=== PATIENT | female | born 1960 | race Caucasian/White ===

== ENCOUNTER 2017-10-14 22:33 | Inpatient (IN) | payer MEDICARE ==
[~2017-10-14] VITALS: Ht 167.6 cm; Wt 74.9 kg
[2017-10-14 22:10] VITALS: O2SAT 94
[2017-10-14] MEDS ORDERED: MORPHINE SULFATE 4 MG/ML INJ ONE (22:36)
[2017-10-14] MEDS ORDERED: ONDANSETRON HCL 4 MG/2 ML VIAL ONE (22:37)
[2017-10-14] MEDS ORDERED: DIPHTH/TETANUS/ACEL PERTUSSIS (BOOSTER) 0.5 ML VIAL/PFS IM ONE (22:37)
[2017-10-14] MEDS ORDERED: PROPOFOL 200 MG/20 ML AMP ONE (22:41)
[2017-10-14 22:59] LABS: AUTOMATED NEUTROPHIL # 2.6 TH/MM3 (1.8-7.7); BASOPHIL # 0.1 TH/MM3 (0-0.2); BASOPHIL % 1.5 % (0.0-2.0); EOSINOPHIL # 0.3 TH/MM3 (0-0.4); EOSINOPHIL % 4.3 % (0.0-4.0); HEMOGLOBIN 11.8 GM/DL (11.6-15.3); LYMPH % 48.2 % (9.0-44.0); LYMPHOCYTE # 3.8 TH/MM3 (1.0-4.8); MEAN CELL VOLUME 108.2 FL (80.0-100.0); MEAN CORPUSCULAR HEMOGLOBIN 36.6 PG (27.0-34.0); MEAN CORPUSCULAR HGB CONC 33.8 % (32.0-36.0); MEAN PLATELET VOLUME 10.6 FL (7.0-11.0); MONO % 13.8 % (0.0-8.0); MONOCYTE # 1.1 TH/MM3 (0-0.9); NEUT % 32.2 % (16.0-70.0); PLATELET COUNT 245 TH/MM3 (150-450); RED BLOOD COUNT 3.23 MIL/MM3 (4.00-5.30); RED CELL DISTRIBUTION WIDTH 13.1 % (11.6-17.2); WHITE BLOOD COUNT 7.9 TH/MM3 (4.0-11.0)
[2017-10-14 23:00] VITALS: BP 92/55; PULSE 95; RESP 16; O2SAT 100
[2017-10-14] MEDS ORDERED: ceFAZolin 2 GM PREMIX 50 ML IV ONE (23:00)
--- NOTE | 2017-10-14 23:02 | PD ---
HPI Chief Complaint: Trauma Alert Time Seen by Provider: 22:39 Travel History International Travel<30 days: No Contact w/Intl Traveler<30days: No Traveled to known affect area: No History of Present Illness HPI 57-year-old female brought in by ambulance as a level 2 trauma alert. Upon arrival to the emergency department the entire trauma team was at the bedside and ATLS protocol was followed. Patient arrives awake and alert and on a long board. She reports that she tripped and fell down 2 steps at her home and twisted her left leg. She experienced immediate pain to the left leg and was unable to ambulate. It took her about 30-45 minutes to crawl back into her home to call 911. She denies head injury or LOC. She was given 4 mg of IV morphine by EMS prior to arrival. Pain is still significant in her left leg, constant, worse with movements. She denies any other injuries. No head neck or back pain. No upper extremity or right lower extremity pain. No chest pain or dyspnea. No abdominal pain. No paresthesias in the left foot. Last oral intake was around noon today. [facility] Social History Alcohol Use: Yes Tobacco Use: No Allergies-Medications (Allergen,Severity, Reaction): Coded Allergies: No Known Allergies (Unverified , 10/14/17) Review of Systems Except as stated in HPI: all other systems reviewed are Neg Physical Exam Narrative GENERAL: Well-developed, well-nourished, awake, alert, GCS 15, no apparent distress. SKIN: Focused skin assessment warm/dry. Small approximately 1 cm was onto laceration superior to the left lateral malleolus with mild venous oozing, no visible contaminants. HEAD: Atraumatic. Normocephalic. EYES: Pupils equal and round. No scleral icterus. No injection or drainage. ENT: Mucous membranes pink and moist. NECK: Trachea midline. No JVD. CARDIOVASCULAR: Regular rate and rhythm. Normal capillary refill in left foot and toes, however dorsalis pedis pulse is not palpable, however is dopplerable. RESPIRATORY: No accessory muscle use. Clear to auscultation. Breath sounds equal bilaterally. GASTROINTESTINAL: Abdomen soft, non-tender, nondistended. Hepatic and splenic margins not palpable. MUSCULOSKELETAL: Obvious deformity to left distal leg with moderate sized hematoma over the distal tibia, diffusely tender, all compartments in the leg are supple. The rest of her joints and extremities are without deformity, without tenderness, with normal range of motion. Pelvis is stable. NEUROLOGICAL: Awake and alert. No obvious cranial nerve deficits. Motor grossly within normal limits. Normal speech. Normal sensation in left foot and toes as well as the rest of her extremities. PSYCHIATRIC: Appropriate mood and affect; insight and judgment normal. Data Data Last Documented VS Vital Signs Date Time Temp Pulse Resp B/P (MAP) Pulse Ox O2 Delivery O2 Flow Rate FiO2 10/14/17 23:45 97 Nasal Cannula 3.00 10/14/17 23:44 97 16 Orders Orders Morphine Inj (Morphine Inj) (10/14/17 22:36) Ondansetron Inj (Zofran Inj) (10/14/17 22:37) Lkqw-Kgw-Wdwfsz (Booster) Inj (Boostrix (10/14/17 22:37) I-Stat Profile (10/14/17 22:39) Complete Blood Count With Diff (10/14/17 22:39) Prothrombin Time / Inr (Pt) (10/14/17 22:39) Act Partial Throm Time (Ptt) (10/14/17 22:39) Type And Screen (10/14/17 22:39) Alcohol (Ethanol) (10/14/17 22:39) Urinalysis - C+S If Indicated (10/14/17 22:39) Chest, Single Ap (10/14/17 22:39) Iv Access Insert/Monitor (10/14/17 22:39) Ecg Monitoring (10/14/17 22:39) Oximetry (10/14/17 22:39) Oxygen Administration (10/14/17 22:39) Ed Poc Ultrasound (10/14/17 22:39) Tibia/Fibula (Ap/Lat) (10/14/17 ) Propofol 200 Mg/20 Ml Inj (Diprivan 200 (10/14/17 22:41) Cefazolin 2 Gm Premix (Ancef 2 Gm Premix (10/14/17 23:00) Tibia/Fibula (Ap/Lat) (10/14/17 ) Cta Runoff W Iv Contrast W 3d (10/14/17 ) Gentamicin Inj (Gentamicin Inj) (10/14/17 23:15) Fiberglass Short Leg Splint Ad (10/14/17 ) Fiberglass Sugartong Sp Ad Sl (10/14/17 ) Ice Cuff (10/14/17 ) Iohexol 350 Inj (Omnipaque 350 Inj) (10/14/17 23:45) Admit Order (Ed Use Only) (10/15/17 00:19) Labs Laboratory Tests Test 10/14/17 22:39 White Blood Count 7.9 TH/MM3 Red Blood Count 3.23 MIL/MM3 Hemoglobin 11.8 GM/DL Bedside Hemoglobin 12.9 G/DL Hematocrit 35.0 % Bedside Hematocrit 38.0 % Mean Corpuscular Volume 108.2 FL Mean Corpuscular Hemoglobin 36.6 PG Mean Corpuscular Hemoglobin Concent 33.8 % Red Cell Distribution Width 13.1 % Platelet Count 245 TH/MM3 Mean Platelet Volume 10.6 FL Neutrophils (%) (Auto) 32.2 % Lymphocytes (%) (Auto) 48.2 % Monocytes (%) (Auto) 13.8 % Eosinophils (%) (Auto) 4.3 % Basophils (%) (Auto) 1.5 % Neutrophils # (Auto) 2.6 TH/MM3 Lymphocytes # (Auto) 3.8 TH/MM3 Monocytes # (Auto) 1.1 TH/MM3 Eosinophils # (Auto) 0.3 TH/MM3 Basophils # (Auto) 0.1 TH/MM3 CBC Comment DIFF FINAL Differential Comment Prothrombin Time 9.4 SEC Prothromb Time International Ratio 0.9 RATIO Activated Partial Thromboplast Time 24.0 SEC Bedside Sodium 141 MMOL/L Bedside Potassium 5.5 MMOL/L Bedside Chloride 109 MMOL/L Bedside Blood Urea Nitrogen 35 MG/DL Bedside Creatinine 1.1 MG/DL Bedside Glucose 92 MG/DL Ethyl Alcohol Level 235 MG/DL [facility] Medical Screen Exam Complete: Yes Emergency Medical Condition: Yes Differential Diagnosis Open tib-fib fracture, syncope, slip and fall, metabolic abnormality, alcohol intoxication, vascular injury Narrative Course Patient arrives via ambulance as a level 2 trauma. The only injury is an open left tib-fib fracture that is comminuted, displaced, angulated with apex anterior. Initially dorsalis pedis pulse was dopplerable, not palpable. Patient was provided procedural sedation with IV propofol, and the fracture was reduced using traction. After reduction, breast dorsalis pedis pulse was palpable, and there is normal capillary refill in all 5 toes. Ice cuff applied under a Leon short leg splint. The patient's tetanus was updated, and the patient was given Ancef 2g IV and 80 mg of IV gentamicin. 10:55 PM: Case discussed with on-call trauma surgeon Dr. Salgado. This is an isolated orthopedic injury and he states the patient can be admitted to the medical service. 11:04 PM: Case discussed with on-call orthopedist Dr. Lucero who recommends splinting, icing, elevating the extremity, n.p.o. after midnight, plan for ORIF in the morning.in the AM. Patient was taken to CTA for CT runoff of the lower extremities. 11:52 PM: I was called by on-call radiologist Dr. Zayas who states that the anterior tibial artery stops at the point of fracture and he believes that this is secondary to arterial spasm. There is two-vessel runoff of the posterior tibialis and peroneal artery down to the foot. 11:55 PM: On reassessment the patient is sleeping comfortably. Her toes are warm with less than 2 second capillary refill. 12:05 AM: Case discussed with hospitalist Dr. Oliveira who will admit the patient to his service. 12:15 AM: I discussed CTA runoff findings as well as clinical exam findings with on-call vascular surgeon Dr. Ojeda. No vascular intervention necessary at this time. The patient was made aware of all findings and plan for admission for likely operative repair in the morning. Procedures Procedure Narrative Procedural sedation: After the risks and benefits were discussed the following procedure was performed: MODERATE SEDATION: The patient was placed on a cardiac exercise specialist and pulse oximetry. An ambu bag and suction was immediately available at bedside. The patient was monitored by the nurse. Oxygen saturation , heart rate and blood pressure were monitored. Procedural sedation was acheived using 90 mg of propofol. The patient was observed until awake and alert. Procedural Sedation time in attendance was 15 minutes. Closed reduction of left tib/fib fracture: After adequate sedation was achieved, closed reduction of the comminuted left tib-fib fracture was performed by me using traction. After reduction, brisk dorsalis pedis pulse was palpable, and there is normal capillary refill to all 5 toes. Web rolling, then ice cuff, then Leon splint applied. Tolerated well. No complications. Diagnosis Diagnosis: Primary Impression: Open fracture of left tibia and fibula Qualified Codes: S82.202C - Unspecified fracture of shaft of left tibia, initial encounter for open fracture type IIIA, IIIB, or IIIC; S82.402C - Unspecified fracture of shaft of left fibula, initial encounter for open fracture type IIIA, IIIB, or IIIC Additional Impression: Alcohol intoxication Qualified Codes: F10.920 - Alcohol use, unspecified with intoxication, uncomplicated Admitting Physician Requests: Admit Yimi Jessica MD October 14, 2017 23:02
--- NOTE | 2017-10-14 23:02 | RADRPT ---
EXAM DATE/TIME: 10/14/2017 22:35 [facility] COMPARISON: No previous studies available for comparison. INDICATIONS : Trauma alert, fall. MEDICAL HISTORY : None. SURGICAL HISTORY : None. ENCOUNTER: Initial ACUITY: 1 day PAIN SCORE: Non-responsive. LOCATION: Bilateral chest FINDINGS: A single view of the chest demonstrates the lungs to be symmetrically aerated without evidence of mas s, infiltrate or effusion. The cardiomediastinal contours are unremarkable. Osseous structures are intact. CONCLUSION: No acute disease. Blaine Bardales Jr., MD on October 14, 2017 at 22:59 Board Certified Radiologist. This report was verified electronically.
--- NOTE | 2017-10-14 23:04 | RADRPT ---
EXAM DATE/TIME: 10/14/2017 22:35 [facility] COMPARISON: No previous studies available for comparison. INDICATIONS : Trauma alert, fall. MEDICAL HISTORY : None. SURGICAL HISTORY : None. ENCOUNTER: Initial ACUITY: 1 day PAIN SCORE: Non-responsive. LOCATION: Left distal lower leg. FINDINGS: 3 views of the left lower leg reveal an acute comminuted fracture involving the distal tibial metadia physis. There is 25 of angulation with apex anterior. No overlap. A comminuted distal fibular fractu re involving the distal metadiaphysis. 25 of angulation with apex anterior. Tibiotalar joint is unre markable. Soft tissue swelling noted. Subcutaneous air consistent with compound fracture. No radiopaq ue foreign body observed. CONCLUSION: Comminuted distal tibial and fibular fractures with compound fracture and subcutaneous air. Blaine Bardales Jr., MD on October 14, 2017 at 23:00 Board Certified Radiologist. This report was verified electronically.
--- NOTE | 2017-10-14 23:05 | RADRPT ---
EXAM DATE/TIME: 10/14/2017 22:35 [facility] COMPARISON: No previous studies available for comparison. INDICATIONS : Left lower leg post reduction. MEDICAL HISTORY : None. SURGICAL HISTORY : None. ENCOUNTER: Subsequent ACUITY: 1 day PAIN SCORE: Non-responsive. LOCATION: Left distal lower leg. FINDINGS: 2 views of the left lower leg were performed with splint material in place. There has been reduction of the angulation at the distal tibial and fibular fractures when compared to prior study. CONCLUSION: Reduced angulation. Blaine Bardales Jr., MD on October 14, 2017 at 23:02 Board Certified Radiologist. This report was verified electronically.
[2017-10-14] MEDS ORDERED: GENTAMICIN INJ 80 MG in SODIUM CHLORIDE 0.9% INJ 100 ML IV ONE (23:15)
[2017-10-14 23:20] LABS: INTERNATIONAL NORMALIZED RATIO 0.9 RATIO; PROTHROMBIN TIME - PATIENT 9.4 SEC (9.8-11.6)
[2017-10-14 23:44] VITALS: BP 101/55; PULSE 97; RESP 16; O2SAT 89
[2017-10-14 23:45] VITALS: O2SAT 97
[2017-10-14] MEDS ORDERED: IOHEXOL 350 MG/ML 10 ML VIAL (for RAD DIAG) IVCONTRAST ONE (23:45)
[2017-10-15] MEDS ORDERED: HYDROmorphone HCL PF 0.5 MG/0.5 ML SYRINGE IV PUSH PRN (00:30)
[2017-10-15] MEDS ORDERED: LORazepam 2 MG TAB PO PRN (00:30)
[2017-10-15] MEDS ORDERED: MORPHINE SULFATE 4 MG/ML INJ IV PUSH ONE (00:30)
[2017-10-15] MEDS ORDERED: LORazepam 2 MG/ML VIAL IV PUSH PRN ×4 (00:30)
[2017-10-15] MEDS ORDERED: FLUMAZENIL 0.5 MG/5 ML VIAL IV PUSH PRN (00:30)
--- NOTE | 2017-10-15 00:32 | HHI.HP ---
[facility] Ad[facility] Diagnosis Open/comminuted left tib-fib fracture Diagnoses: (1) Open fracture of left tibia and fibula (2) Alcohol intoxication Chief Complaint: Fall down steps, severe left lower leg pain post-fall Travel History International Travel<30 Days: No Contact w/Intl Traveler <30 Da: No Traveled to Known Affected Are: No History of Present Illness Written by Antonella Rocha, acting as scribe for Dr. Oliveira on 10/15/17 at 00:32. Ms. Mayberry is a 57 year-old female with a history of type 2 diabetes mellitus managed with diet and weight loss, hypertension, and peptic ulcer who fell coming down some steps and suffered an open fracture of her left tibia and fibula. She is admitted for orthopedic consultation and further medical management to the [facility] service. The patient is seen in the ED. She reports severe left lower extremity pain. Patient states that she has 2 steps coming out of her trailer and when she attempted to walk down the steps at about 7:30 PM on 10/14/2017, her ankle "gave way". She suffered from immediate pain in the left lower extremity and inability to ambulate. Prior to/during fall: she denies hitting her head, she denies syncope, she denies dizziness, she denies shortness of breath, she denies chest pain. The patient reports that she was recently diagnosed with osteoporosis or osteopenia - was not placed on medications "yet". Review of Systems Except as stated in HPI: all other systems reviewed are Neg Past Family Social History Past Medical History T2DM - treated effectively with diet and weight loss, hg A1C was in 5's on last check HTN - losartan 50 mg daily Peptic Ulcer "years ago" ?Osteopenia versus osteoporosis? -Recently diagnosed and not on medication for . Past Surgical History Partial pancreatectomy Splenectomy . Reported Medications Gabapentin Losartan Carafate 1 mg BID Vitamin E CoQ10 . Allergies: Coded Allergies: No Known Allergies (Unverified , 10/14/17) Family History Mother with lung cancer Father and sister with hypertension Father with diabetes . Social History ETOH - drinks a couple of drinks of wine daily, last use today at noon . Physical Exam Vital Signs Vital Signs Date Time Temp Pulse Resp B/P (MAP) Pulse Ox O2 Delivery O2 Flow Rate FiO2 10/14/17 23:45 97 Nasal Cannula 3.00 10/14/17 23:44 97 16 101/55 (70) 89 Room Air 10/14/17 23:00 95 16 92/55 (67) 100 Room Air 10/14/17 22:10 94 4.00 Physical Exam CONSTITUTIONAL: This is an older female who appears well nourished patient, in no apparent distress. INTEGUMENTARY: No rashes, ecchymoses or lesions. Cool and dry. HEAD: Atraumatic. Normocephalic. EYES: No scleral icterus. No injection or drainage. ENT: Nose without bleeding, purulent drainage. NECK: Trachea midline. No JVD. CARDIOVASCULAR: Regular rate and rhythm without murmurs, gallops, or rubs. RESPIRATORY: Clear to auscultation. Breath sounds equal bilaterally. No wheezes , rales, or rhonchi. GASTROINTESTINAL: Abdomen soft, non-tender, nondistended. No guarding. MUSCULOSKELETAL: Extremities without clubbing, cyanosis, or edema. No calf tenderness. Left lower extremity in splint. NEUROLOGICAL: Awake and alert. Motor and sensory grossly within normal limits. Normal speech. . Laboratory Laboratory Tests Test 10/14/17 22:39 White Blood Count 7.9 Red Blood Count 3.23 Hemoglobin 11.8 Bedside Hemoglobin 12.9 Hematocrit 35.0 Bedside Hematocrit 38.0 Mean Corpuscular Volume 108.2 Mean Corpuscular Hemoglobin 36.6 Mean Corpuscular Hemoglobin Concent 33.8 Red Cell Distribution Width 13.1 Platelet Count 245 Mean Platelet Volume 10.6 Neutrophils (%) (Auto) 32.2 Lymphocytes (%) (Auto) 48.2 Monocytes (%) (Auto) 13.8 Eosinophils (%) (Auto) 4.3 Basophils (%) (Auto) 1.5 Neutrophils # (Auto) 2.6 Lymphocytes # (Auto) 3.8 Monocytes # (Auto) 1.1 Eosinophils # (Auto) 0.3 Basophils # (Auto) 0.1 CBC Comment DIFF FINAL Differential Comment Prothrombin Time 9.4 Prothromb Time International Ratio 0.9 Activated Partial Thromboplast Time 24.0 Bedside Sodium 141 Bedside Potassium 5.5 Bedside Chloride 109 Bedside Blood Urea Nitrogen 35 Bedside Creatinine 1.1 Bedside Glucose 92 Ethyl Alcohol Level 235 Result Diagram: 10/14/172238 Imaging Last Impressions Chest X-Ray 10/14/172238 Signed Impressions: Service Date/Time: Saturday, October 14, 2017 22:35 - CONCLUSION: No acute disease. Blaine Bardales Jr., MD Tibia/Fibula X-Ray 10/14/17 0000 Signed Impressions: Service Date/Time: Saturday, October 14, 2017 22:35 - CONCLUSION: Reduced angulation. Blaine Bardales Jr., MD Aorta w/Runoff CTA 10/14/17 0000 Signed Impressions: Service Date/Time: Saturday, October 14, 2017 23:14 - CONCLUSION: 1. Patent inflow. 2. Right lower extremity shows patent outflow and runoff. 3. Left lower extremity has occlusion of the anterior tibial artery at the level of the fracture of the lower leg possibly due to spasm. The posterior tibial artery and peroneal artery are patent. 4. Hepatic steatosis. 5. Prior splenectomy and partial pancreatectomy. Blaine Bardales Jr., MD . Caprini VTE Risk Assessment Caprini VTE Risk Assessment: Mod/High Risk (score >= 2) Caprini Risk Assessment Model Point Value = 1 Point Value = 2 Point Value = 3 Point Value = 5 Age 41-60 Minor surgery BMI > 25 kg/m2 Swollen legs Varicose veins or History of unexplained or recurrent spontaneous Oral contraceptives or hormone replacement Sepsis (< 1 month) Serious lung disease, including pneumonia (< 1 month) Abnormal pulmonary function Acute myocardial infarction Congestive heart failure (< 1 month) History of inflammatory bowel disease Medical patient at bed rest Age 61-74 Arthroscopic surgery Major open surgery (> 45 min) Laparoscopic surgery (> 45 min) Malignancy Confined to bed (> 72 hours) Immobilizing plaster cast Central venous access Age >= 75 History of VTE Family history of VTE Factor V Leiden Prothrombin [id number] Lupus anticoagulant Anticardiolipin antibodies Elevated serum homocysteine Heparin-induced thrombocytopenia Other congenital or acquired thrombophilia Stroke (< 1 month) Elective arthroplasty Hip, pelvis, or leg fracture Acute spinal cord injury (< 1 month) Prophylaxis Regimen Total Risk Factor Score Risk Level Prophylaxis Regimen 0-1 Low Early ambulation 2 Moderate Order ONE of the following: *Sequential Compression Device (SCD) *Heparin 5000 units SQ BID 3-4 Higher Order ONE of the following medications: *Heparin 5000 units SQ TID *Enoxaparin/Lovenox 40 mg SQ daily (WT < 150 kg, CrCl > 30 mL/min) *Enoxaparin/Lovenox 30 mg SQ daily (WT < 150 kg, CrCl > 10-29 mL/min) *Enoxaparin/Lovenox 30 mg SQ BID (WT < 150 kg, CrCl > 30 mL/min) AND/OR *Sequential Compression Device (SCD) 5 or more Highest Order ONE of the following medications: *Heparin 5000 units SQ TID (Preferred with Epidurals) *Enoxaparin/Lovenox 40 mg SQ daily (WT < 150 kg, CrCl > 30 mL/min) *Enoxaparin/Lovenox 30 mg SQ daily (WT < 150 kg, CrCl > 10-29 mL/min) *Enoxaparin/Lovenox 30 mg SQ BID (WT < 150 kg, CrCl > 30 mL/min) AND *Sequential Compression Device (SCD) Assessment and Plan Problem List: (1) Open fracture of left tibia and fibula ICD Code: S82.402B - Unspecified fracture of shaft of left fibula, initial encounter for open fracture type I or II; S82.202B - Unspecified fracture of shaft of left tibia, initial encounter for open fracture type I or II Status: Acute (2) Alcohol intoxication ICD Code: F10.929 - Alcohol use, unspecified with intoxication, unspecified Status: Acute Assessment and Plan Ms. Mayberry is a 57 year-old female with a history of type 2 diabetes mellitus managed with diet and weight loss, hypertension, and peptic ulcer who fell coming down some steps and suffered an open fracture of her left tibia and fibula. She is [facility] orthopedic consultation [facility]. Open fracture of left tibia and fibula -Consult orthopedics; Dr. Lucero - appreciate assistance -Hydrocodone 0.5 - 1 mg IV every 4 hours as needed pain -NPO of note the result CTA runoff was d/w ( vascular surgery contact lens inspector) by ER physician and no vascular interventions recommended. Alcohol abuse -Ethyl alcohol level 235 on admission -CIWA protocol Dehydration with bun of 35 mild hyperkalemia -IV fluid hydration with normal saline at 100 cc/h -Recheck BMP in a.m. and follow results DVT prophylaxis -SCD/TANNER non-operative leg the above note was scribed by Ms.Nicole Rocha. I attest that I had a face-to- face encounter with the patient on the same day, and personally performed the history and physical exam and medical decision making. . Discussed Condition With Dr. Jessica, RN, and patient . Physician Certification 2 Midnight Certification Type: Admission for Inpatient Services Order for Inpatient Services The services are ordered in accordance with Medicare regulations or non- Medicare payer requirements, as applicable. In the case of services not specified as inpatient-only, they are appropriately provided as inpatient services in accordance with the 2-midnight benchmark. Estimated LOS (days): 3 days is the estimated time the patient will need to remain in the hospital, assuming treatment plan goals are met and no additional complications. Post-Hospital Plan: Not yet determined Problem Qualifiers (1) Open fracture of left tibia and fibula: Qualified Codes: S82.202C - Unspecified fracture of shaft of left tibia, initial encounter for open fracture type IIIA, IIIB, or IIIC; S82.402C - Unspecified fracture of shaft of left fibula, initial encounter for open fracture type IIIA, IIIB, or IIIC (2) Alcohol intoxication: Qualified Codes: F10.920 - Alcohol use, unspecified with intoxication, uncomplicated Antonella Rocha October 15, 2017 00:32 Nora Oliveira MD October 15, 2017 02:12
--- NOTE | 2017-10-15 00:40 | RADRPT ---
EXAM DATE/TIME: 10/14/2017 23:14 [facility] COMPARISON: No previous studies available for comparison. INDICATIONS : Trauma alert, patient fell. Left lower extremity fracture, no pulses. IV CONTRAST: 100 cc Omnipaque 350 (iohexol) IV Injection Site: Rt AC Lot: [id number] Exp Date: Jul 2020 Lot: Exp Date : RADIATION DOSE: 2.90 CTDIvol (mGy) MEDICAL HISTORY : Non-responsive. SURGICAL HISTORY : Non-responsive. ENCOUNTER: Initial ACUITY: 1 day PAIN SCALE: 10/10 LOCATION: Left lower extremity. TECHNIQUE: Volumetric scanning was performed using a multi-row detector CT scanner. The data was post processed with a variety of visualization algorithms including full volume maximum intensity projection, multi -planar sliding thin slab reformation, curved planar reformation, and surface rendering techniques. Using automated exposure control and adjustment of the mA and/or kV according to patient size, radiat ion dose was kept as low as reasonably achievable to obtain optimal diagnostic quality images. DICO M format image data is available electronically for review and comparison. FINDINGS: Aorta/inflow: Mild scattered calcified atherosclerotic plaque without luminal narrowing or aneurysmal change. Inflo w vessels are patent bilaterally. The celiac, SMA, AKUA, and renal arteries are patent. 2 renal arteri es supplying the right kidney and one supplying the left. Right lower extremity: Patent outflow and runoff. 3 vessel runoff to the foot. Left lower extremity: The outflow is patent. Posterior tibial artery and peroneal artery are good caliber vessels and both are patent. Anterior tibial artery occludes at the level of the fracture involving the lower leg. Other structures: Fractures involving the distal tibia and fibula on the left. Hepatic steatosis. The spleen is absent. Partial pancreatectomy. CONCLUSION: 1. Patent inflow. 2. Right lower extremity shows patent outflow and runoff. 3. Left lower extremity has occlusion of the anterior tibial artery at the level of the fracture of t he lower leg possibly due to spasm. The posterior tibial artery and peroneal artery are patent. 4. Hepatic steatosis. 5. Prior splenectomy and partial pancreatectomy. Blaine Bardales Jr., MD on October 15, 2017 at 0:33 Board Certified Radiologist. This report was verified electronically.
[2017-10-15] MEDS ORDERED: ONDANSETRON ODT 4 MG TAB PO PRN ×2 (00:45→12:00)
[2017-10-15 02:20] VITALS: BP 125/82; PULSE 94; RESP 18; TEMP 98.3; O2SAT 97
[2017-10-15] MEDS: HYDROmorphone HCL PF 0.5 MG/0.5 ML SYRINGE IV PRN ×2 (02:26→06:33)
[2017-10-15] MEDS: SODIUM CHLOR 0.9% 1000 ML INJ 1,000 ML IV SCH ×2 (02:27→10:30)
[2017-10-15] MEDS ORDERED: SODIUM CHLORID 0.9% 500 ML IV PRN (02:30)
[2017-10-15] MEDS ORDERED: POVIDONE IODINE 5% (ANTISEPSIS KIT) 4 APPLICATIONS EACH NARE PRN (02:30)
[2017-10-15] MEDS ORDERED: LACTATED RINGER'S 1000 ML IV PRN (02:30)
[2017-10-15] MEDS ORDERED: CHLORHEXIDINE GLUCONATE 2 % 1 PACK (2 CLOTHS) TOPICAL PRN (02:30)
[2017-10-15 02:33] VITALS: PULSE 96
[2017-10-15 03:21] LABS: BILIRUBIN, URINE NEG (NEG); BLOOD, URINE NEG (NEG); GLUCOSE,URINE NEG (NEG); KETONE, URINE NEG (NEG); MUCUS URINE FEW /lpf (OCC); NITRITE,URINE NEG (NEG); PH, URINE 5.5 (5.0-8.5); URINE COLOR LIGHT-YELLOW (YELLW/STRAW); URINE LEUKOCYTE ESTERASE NEG (NEG)
[2017-10-15 04:00] VITALS: BP 109/60; PULSE 86; RESP 18; TEMP 97.6; O2SAT 95
[2017-10-15 04:06] VITALS: PULSE 87
[2017-10-15 05:04] LABS: BICARBONATE 25.5 MEQ/L (21.0-32.0); CALCIUM 7.9 MG/DL (8.5-10.1); CREATININE 0.83 MG/DL (0.50-1.00)
--- NOTE | 2017-10-15 06:34 | PD.ORT.PN ---
Subjective Subjective Remarks Fell yesterday coming out of her mobile home which has 2 steps. She is wearing flip-flops and tripped and landed on her left leg. She had immediate deformity and pain. She crawled back into the home and called for [facility]. She was diagnosed left open tibia fracture. No other complaints Objective Vitals Vital Signs Date Time Temp Pulse Resp B/P (MAP) Pulse Ox O2 Delivery O2 Flow Rate FiO2 10/15/17 04:06 87 10/15/17 04:00 97.6 86 18 109/60 (76) 95 10/15/17 02:33 96 10/15/17 02:20 98.3 94 18 125/82 (96) 97 10/15/17 02:06 10/14/17 23:45 97 Nasal Cannula 3.00 10/14/17 23:44 97 16 101/55 (70) 89 Room Air 10/14/17 23:00 95 16 92/55 (67) 100 Room Air 10/14/17 22:10 94 4.00 I/O 10/14/17 10/14/17 10/14/17 10/15/17 10/15/17 10/15/17 07:00 15:00 23:00 07:00 15:00 23:00 Intake Total 102 ml Balance 102 ml Intake IV Total 102 ml Result Diagram: 10/14/17223810/15/17 0349 Other Results Laboratory Tests Test 10/14/17 22:39 Prothromb Time International Ratio 0.9 RATIO Prothrombin Time 9.4 SEC (9.8-11.6) Imaging Last 24 hours Impressions Chest X-Ray 10/14/172238 Signed Impressions: Service Date/Time: Saturday, October 14, 2017 22:35 - CONCLUSION: No acute disease. Blaine Bardales Jr., MD Objective Remarks Bilateral upper extremities: Full range of motion and neurovascularly intact Right lower extremity: Full range of motion and neurovascularly intact Left lower extremity: Pain to palpation of midshaft tibia which is splinted. Distally intact sensation and movement of toes. She has good capillary refills. No pain to palpation of knee or hip Assessment & Plan Assessment and Plan Left open distal tibia and fibula shaft fracture N.p.o. Surgery this morning for irrigation debridement and reduction with intramedullary domenic fixation. If there is significant tissue involvement and or the fracture is very dirty from the fracture we may use external fixation and stage this and 2 surgeries. Signed consent Chuck Hanley Jr. October 15, 2017 06:34
[2017-10-15] MEDS ORDERED: GENTAMICIN SULFATE 80 MG/2 ML VIAL ONE ×2 (07:18→08:15)
--- NOTE | 2017-10-15 07:35 | MB ---
cc: Brant Leon MD DATE: 10/15/2017 REASON FOR CONSULTATION: Open left tibia and fibula fractures. CONSULTING PHYSICIAN: Dr. Oliveira. HISTORY: This patient known as Janessa [email or web address] is a 57-year-old female who has a history of type 2 diabetes. She was coming down the steps of her mobile home when she lost her balance and fell. She states that she fell off of 2 steps. She had immediate left leg pain. She was unable to stand or ambulate. She presented to the Emergency Room where x-rays revealed displaced left tibia and fibula fractures. She also had a skin opening consistent with an open fracture. She has currently being admitted for treatment of this injury. She states that she was recently diagnosed with osteoporosis, but is not on medications currently. She denies dizziness, syncope, or loss of consciousness. Pain is improved with rest and is worse with motion. PAST MEDICAL HISTORY: Illnesses: Diabetes type 2, hypertension, peptic ulcer disease. PAST SURGICAL HISTORY: Partial pancreatectomy, splenectomy. MEDICATIONS: 1. Gabapentin. 2. Losartan. 3. Carafate, vitamin. ALLERGIES: NO KNOWN DRUG ALLERGIES. FAMILY HISTORY: Positive for lung cancer in her mother and hypertension in her father and sister and diabetes in her father. SOCIAL HISTORY: The patient drinks wine daily. She denies drug use. REVIEW OF SYSTEMS: The patient denies headache, visual changes, neck pain, chest pain, shortness of breath, abdominal pain, nausea, vomiting, recent weight loss, fevers or chills, numbness or tingling of extremities or recent weight loss. She complains of left leg pain. The pain is worse with movement. She denies dizziness, syncope or loss of consciousness. LABORATORY DATA: Patient has a white blood cell count of 7.9, hematocrit of 35.0, platelet count of 245. INR 0.9. Potassium of 4.2, BUN of 20 and creatinine of 0.83. X-RAYS: X-rays of the left tibia were reviewed. X-rays reveal a mildly comminuted midshaft left tibia and fibula fracture. IMPRESSION: 1. Osteoporosis. 2. Open left tibia and fibula fractures. 3. History of peptic ulcer disease. 4. Type 2 diabetes. PLAN: Treatment options were discussed with the patient. At this point, I would recommend irrigation and debridement of open fracture, followed by reduction intramedullary nail fixation of left tibia. If the wound is grossly contaminated and dirty, she will likely need a staged procedure with temporary external fixation until definitive fixation is safe to perform. The risks of surgery including bleeding, infection, injury to arteries, nerves or blood vessels, wound infection, bone infection, osteomyelitis, as well as medical complications including blood clot, stroke, heart attack, and were discussed. Given the open fracture and her diabetes, she is at increased risk of developing wound problems or infection. I also discussed with her osteoporosis. She will need to be on calcium and vitamin D postoperatively. She may also benefit from a medication such as Forteo to help build her bone. She will also be placed on DVT prophylaxis postoperatively. All questions were answered. A mid-level provider in my office, nurse practitioner or PA, may see this patient on a follow-up basis and continue to implement the objective of this plan including: Starting or adjusting medications, injections of muscle, tendon, bursa or joints, cast application, orthotic or brace application, physical therapy, further radiographic studies including x-ray, MRI, CT, ultrasounds or bone scan, vascular studies, neurologic studies, or other specialist consultations, and proceeding with surgical management as appropriate. MD XENA Olvera/LYSSA , 07:08 AM , 07:34 AM
[2017-10-15] MEDS ORDERED: VANCOMYCIN INJ 1,000 MG in SODIUM CHLOR 0.9% 250 ML INJ 250 ML IV ONE (07:45)
[2017-10-15] MEDS ORDERED: Vancomycin Consult Pharmacy 1 EA OTHER SCH (07:45)
[2017-10-15] MEDS ORDERED: ceFAZolin INJ 1,000 MG VIAL ONE (08:15)
--- NOTE | 2017-10-15 09:57 | PD.OP ---
cc: Brant Van MD Operative Report Date of Surgery: October 15, 2017 Preoperative Diagnosis: Open left fibula and tibia fractures Postoperative Diagnosis: Same, left ankle medial malleolus fracture Procedure: Irrigation and debridement of open left fibula fracture, intramedullary nail fixation of left tibia fracture, open reduction internal fixation left medial malleolus ankle fracture Anesthesia: General Surgeon: Brant Van Regulator Mechanic(s): TERRY Nation PA-C The surgical procedure was assisted by my physician respiratory equipment assistant. My P.A. presence was necessary throughout this case for the manipulation and positioning of the surgical extremity. My P.A. was assisting me throughout the duration of this procedure. The skill set of a physician respiratory equipment assistant was medically necessary to complete this procedure. During the surgical case the rn medical surgical was working at the back table and the physician respiratory equipment assistant was directly assisting me. Operation and Findings: Implants: ITS 9mm x [340]mm tibial nail Plan of activity: Nonweightbearing Patient was seen and examined preoperatively. An informed consent was obtained from patient after detailed discussion of risk and benefits. Risks of surgery include bleeding, infection, painful hardware, nonunion, malunion, leg length discrepancy, need for hardware removal, and medical complications associated with anesthesia including blood clots, stroke, heart attack, and were discussed. Operative site was marked. Patient was brought to the operating room placed on or table. Patient received IV antibiotics and was given IV sedation GETA. Operative leg was prepped with alcohol Hibiclens and draped in usual sterile fashion. Timeout procedure was performed Procedure began with reduction of fracture. 2 small incisions were made around the fracture site. A percutaneous clamp was placed. Traction was applied. Fracture was reduced. A second percutaneous clamp was also applied to hold reduction. There was comminution of the fracture. The fracture reduced and excellent alignment was achieved. Fracture clamp was used to aid in reduction. Next a 3 cm incision was made proximal to the patella. Quadriceps tendon was split in line with fibers. Cannulas were placed in the patellofemoral joint to protect the articular surface at all times. A guidepin was placed into the tibia and advanced in the tibial canal. Fluoroscopy was used to confirm appropriate guidepin placement. An opening reamer was used to open the tibial canal. A ball-tipped guidewire was advanced down the tibial canal. Guidepin was passed across the fracture site into the center of the distal tibia. Fluoroscopy confirmed guidepin placement. The nail length was now measured. The fracture was now held in a reduced position and the canal was reamed. The canal was reamed up to appropriate size. A tibia nail was now selected. Next the nail was fully seated. Using perfect chippewa-cree technique 4 distal interlocking screws were placed. Using the insertion handle as a guide 1 proximal interlocking screw was placed. Fluoroscopy confirmed excellent of fracture with well-placed hardware. Fluoroscopy revealed a minimally displaced medial malleolus fracture. The fracture was reduced. A guidepin for a 4.0 cannulated screw was placed across the fracture site. Fluoroscopy confirmed appropriate guidepin placement. A 50 mm 4.0 cancellous screw was now placed across the medial malleolus fracture. Incisions and the knee joint were thoroughly irrigated with sterile saline. Fascia was closed with #1 Vicryl, subcutaneous tissues closed with 3-0 Vicryl and skin was closed with kashif. Sterile dressings were applied. Patient was awakened and transferred to recovery in stable condition. Brant Van MD October 15, 2017 09:57
[2017-10-15] MEDS ORDERED: Post-op Orders (for Pharmacy) XX ONE (10:00)
[2017-10-15] MEDS ORDERED: diphenhydrAMINE HCL 25 MG CAP PO PRN (10:00)
[2017-10-15] MEDS: LACTATED RINGER'S 1000 ML INJ 1,000 ML IV SCH ×2 (10:52→19:50)
[2017-10-15] MEDS ORDERED: MIDAZOLAM HCL 2 MG/2 ML VIAL ONE (10:55)
[2017-10-15] MEDS ORDERED: DO NOT ADM ANY ANTICOAGULANT DRUGS PRN (11:00)
[2017-10-15] MEDS ORDERED: *morphine SULFATE 8 MG/ML PERIprocedure ONLY ONE ×2 (11:06→11:15)
--- NOTE | 2017-10-15 11:12 | RADRPT ---
EXAM DATE/TIME: 10/15/2017 09:51 [facility] COMPARISON: TIBIA/FIBULA LEFT (AP/LAT), October 14, 2017, 22:35. INDICATIONS : Post-op ORIF left tibia. MEDICAL HISTORY : None. SURGICAL HISTORY : None. ENCOUNTER: Subsequent ACUITY: 2 days PAIN SCORE: Non-responsive. LOCATION: Left tibia. FINDINGS: Two view examination of the left tibia demonstrates medullary domenic and osseous screws securing the com minuted distal tibial diaphyseal fracture. Fracture fragments are in adequate anatomic alignment. Oss eous pins secures the medial malleolus as well. Minimally displaced fracture through the distal fibul ar diaphysis. CONCLUSION: Open reduction internal fixation of the left tibial diaphyseal and medial malleolar fractures as above. Isidro Bee MD on October 15, 2017 at 11:09 Board Certified Radiologist. This report was verified electronically.
[2017-10-15] MEDS ORDERED: ONDANSETRON HCL 4 MG/2 ML VIAL IV PUSH ONE (12:00)
[2017-10-15] MEDS ORDERED: PROPOFOL 200 MG/20 ML AMP IV ONE (12:00)
[2017-10-15] MEDS ORDERED: LIDOCAINE HCL 1% PF 5 ML SYRINGE OTHER ONE (12:00)
[2017-10-15] MEDS ORDERED: DEXAMETHASONE SOD PHOS 4 MG/ML VIAL IV ONE (12:00)
[2017-10-15] MEDS ORDERED: PHENYLEPH/NS 1000 MCG/10 ML SYR IV ONE (12:00)
[2017-10-15] MEDS: ACETAMINOPHEN/HYDROcodone 325 MG/10 MG TAB PO PRN ×4 (12:16→20:55)
[2017-10-15] MEDS: VANCOMYCIN 1,000 MG/NS 250 ML IV SCH ×2 (12:17)
[2017-10-15] MEDS: CALCIUM/VITAMIN D 250 MG/125 U TAB PO SCH ×2 (12:17→17:12)
[2017-10-15] MEDS ORDERED: LOSA50TA PO (12:28)
[2017-10-15] MEDS ORDERED: NEUR300C PO (12:28)
[2017-10-15] MEDS ORDERED: LEXA20TA PO (12:28)
[2017-10-15] MEDS ORDERED: LACTCHW3 CHEW (12:28)
[2017-10-15] MEDS ORDERED: ceFAZolin 2 GM PREMIX 50 ML IV SCH (13:00)
[2017-10-15] MEDS: KETOROLAC TROMETHAMINE 30 MG/ML (IVP) VIAL IVP SCH ×2 (13:47→22:31)
[2017-10-15] MEDS: MORPHINE SULFATE 4 MG/ML INJ IV PUSH PRN ×3 (14:09→22:30)
--- NOTE | 2017-10-15 14:33 | HHI.PR ---
Subjective Remarks Patient seen S/P Irrigation and debridement of open left fibula fracture, intramedullary nail fixation of left tibia fracture, open reduction internal fixation left medial malleolus ankle fracture with Dr. Leon Patient reports post-operative pain left lower extremity Offers no other complaints Objective Vitals Vital Signs Date Time Temp Pulse Resp B/P (MAP) Pulse Ox O2 Delivery O2 Flow Rate FiO2 10/15/17 11:30 97.6 91 11 115/75 (88) 97 Nasal Cannula 2 10/15/17 11:15 88 12 129/78 (95) 99 10/15/17 11:00 86 9 136/72 (93) 96 10/15/17 10:45 89 9 131/60 (83) 95 Nasal Cannula 2 10/15/17 10:30 97.6 107 15 128/84 (99) 91 Nasal Cannula 4 10/15/17 04:06 87 10/15/17 04:00 97.6 86 18 109/60 (76) 95 10/15/17 02:33 96 10/15/17 02:20 98.3 94 18 125/82 (96) 97 10/15/17 02:06 10/14/17 23:45 97 Nasal Cannula 3.00 10/14/17 23:44 97 16 101/55 (70) 89 Room Air 10/14/17 23:00 95 16 92/55 (67) 100 Room Air 10/14/17 22:10 94 4.00 10/15/17 10/15/17 10/16/17 14:59 22:59 06:59 Intake Total 1000 ml Output Total 875 ml Balance 125 ml Intake IV Total 1000 ml Output Urine Total 800 ml Estimated Blood Loss 75 ml Result Diagram: 10/14/17 2239 10/15/17 0349 Other Results Laboratory Tests Test 10/14/17 22:39 10/15/17 03:05 10/15/17 03:49 White Blood Count 7.9 TH/MM3 Red Blood Count 3.23 MIL/MM3 Hemoglobin 11.8 GM/DL Bedside Hemoglobin 12.9 G/DL Hematocrit 35.0 % Bedside Hematocrit 38.0 % Mean Corpuscular Volume 108.2 FL Mean Corpuscular Hemoglobin 36.6 PG Mean Corpuscular Hemoglobin Concent 33.8 % Red Cell Distribution Width 13.1 % Platelet Count 245 TH/MM3 Mean Platelet Volume 10.6 FL Neutrophils (%) (Auto) 32.2 % Lymphocytes (%) (Auto) 48.2 % Monocytes (%) (Auto) 13.8 % Eosinophils (%) (Auto) 4.3 % Basophils (%) (Auto) 1.5 % Neutrophils # (Auto) 2.6 TH/MM3 Lymphocytes # (Auto) 3.8 TH/MM3 Monocytes # (Auto) 1.1 TH/MM3 Eosinophils # (Auto) 0.3 TH/MM3 Basophils # (Auto) 0.1 TH/MM3 CBC Comment DIFF FINAL Differential Comment Prothrombin Time 9.4 SEC Prothromb Time International Ratio 0.9 RATIO Activated Partial Thromboplast Time 24.0 SEC Bedside Sodium 141 MMOL/L Bedside Potassium 5.5 MMOL/L Bedside Chloride 109 MMOL/L Bedside Blood Urea Nitrogen 35 MG/DL Bedside Creatinine 1.1 MG/DL Bedside Glucose 92 MG/DL Ethyl Alcohol Level 235 MG/DL Urine Color LIGHT-YELLOW Urine Turbidity CLEAR Urine pH 5.5 Urine Specific [place] 1.036 Urine Protein NEG mg/dL Urine Glucose (UA) NEG mg/dL Urine Ketones NEG mg/dL Urine Occult Blood NEG Urine Nitrite NEG Urine Bilirubin NEG Urine Urobilinogen LESS THAN 2.0 MG/DL Urine Leukocyte Esterase NEG Urine WBC 1 /hpf Urine Mucus FEW /lpf Microscopic Urinalysis Comment CULT NOT INDICATED Blood Urea Nitrogen 20 MG/DL Creatinine 0.83 MG/DL Random Glucose 98 MG/DL Calcium Level 7.9 MG/DL Sodium Level 144 MEQ/L Potassium Level 4.2 MEQ/L Chloride Level 111 MEQ/L Carbon Dioxide Level 25.5 MEQ/L Anion Gap 8 MEQ/L Estimat Glomerular Filtration Rate 59 ML/MIN Imaging Last Impressions Tibia/Fibula X-Ray 10/15/17 0000 Signed Impressions: Service Date/Time: September 09:51 - CONCLUSION: Open reduction internal fixation of the left tibial diaphyseal and medial malleolar fractures as above. Isidro Bee MD Chest X-Ray 10/14/17 2239 Signed Impressions: Service Date/Time: Saturday, October 14, 2017 22:35 - CONCLUSION: No acute disease. Blaine Bardales Jr., MD Aorta w/Runoff CTA 10/14/17 0000 Signed Impressions: Service Date/Time: Saturday, October 14, 2017 23:14 - CONCLUSION: 1. Patent inflow. 2. Right lower extremity shows patent outflow and runoff. 3. Left lower extremity has occlusion of the anterior tibial artery at the level of the fracture of the lower leg possibly due to spasm. The posterior tibial artery and peroneal artery are patent. 4. Hepatic steatosis. 5. Prior splenectomy and partial pancreatectomy. Blaine Bardales Jr., MD Objective Remarks GENERAL: This is a well-nourished, well-developed patient, in no apparent distress. CARDIOVASCULAR: Regular rate and rhythm RESPIRATORY: Clear to auscultation. Breath sounds equal bilaterally. GASTROINTESTINAL: Abdomen soft, non-tender, nondistended. Normal active bowel sounds MUSCULOSKELETAL: Extremities without clubbing, cyanosis, or edema. Post-op dressing dry and intact NEURO: Alert & Oriented x4 to person, place, time, situation. Moves all ext x4 Procedures Irrigation and debridement of open left fibula fracture, intramedullary nail fixation of left tibia fracture, open reduction internal fixation left medial malleolus ankle fracture with Dr. Leon 10/15/17 A/P Problem List: (1) Open fracture of left tibia and fibula ICD Codes: S82.402B - Unspecified fracture of shaft of left fibula, initial encounter for open fracture type I or II; S82.202B - Unspecified fracture of shaft of left tibia, initial encounter for open fracture type I or II Status: Acute (2) Alcohol intoxication ICD Codes: F10.929 - Alcohol use, unspecified with intoxication, unspecified Status: Acute Assessment and Plan Ms. Mayberry is a 57 year-old female with a history of type 2 diabetes mellitus managed with diet and weight loss, hypertension, and peptic ulcer who fell coming down some steps and suffered an open fracture of her left tibia and fibula. She is admitted for orthopedic consultation and further medical management to the [facility]. Open fracture of left tibia and fibula - case discussed with supervising physician Dr. Roy patient started on Vancomycin due to concerns of MRSA -Consult orthopedic surgery, S/P Irrigation and debridement of open left fibula fracture, intramedullary nail fixation of left tibia fracture, open reduction internal fixation left medial malleolus ankle fracture with Dr. Leon 10/15/17 - Orthopedic surgery also ordered Cefazolin and Gentamicin -Hydrocodone as needed pain -CTA runoff was d/w ( vascular surgery strike operations officer) by ER physician and no vascular interventions recommended -CBC, BMP in AM Alcohol abuse -Ethyl alcohol level 235 on admission -[facility]WA protocol -patient counselled Dehydration with bun of 35 mild hyperkalemia -IV fluid hydration with normal saline at 100 cc/h -Recheck BMP shows potassium of 4.2 -patient now tolerating PO DC IVF DVT prophylaxis Lovenox per orthopedic surgery supervising physician Dr. Roy Problem Qualifiers (1) Open fracture of left tibia and fibula: Qualified Codes: S82.202C - Unspecified fracture of shaft of left tibia, initial encounter for open fracture type IIIA, IIIB, or IIIC; S82.402C - Unspecified fracture of shaft of left fibula, initial encounter for open fracture type IIIA, IIIB, or IIIC (2) Alcohol intoxication: Qualified Codes: F10.920 - Alcohol use, unspecified with intoxication, uncomplicated Jeannine Mead October 15, 2017 14:33
[2017-10-15 15:35] VITALS: BP 131/71; PULSE 89; RESP 18; TEMP 98.1; O2SAT 95
[2017-10-15] MEDS: LORazepam 1 MG TAB PO PRN (15:43)
[2017-10-15] MEDS ORDERED: WALKER WHEELS/F1 MIS (15:52)
[2017-10-15] MEDS ORDERED: GENTAMICIN 80 MG PREMIX 100 ML IV SCH (16:00)
[2017-10-15] MEDS: GENTAMICIN INJ 80 MG in SODIUM CHLORIDE 0.9% INJ 100 ML IV SCH (17:12)
[2017-10-15] MEDS: GABAPENTIN 300 MG CAP PO SCH (17:12)
[2017-10-15 20:00] VITALS: BP 127/78; PULSE 80; RESP 18; TEMP 98.2; O2SAT 96
[2017-10-15] MEDS: CEFAZOLIN INJ 2,000 MG in SODIUM CHLORIDE 0.9% INJ 100 ML IV SCH (20:54)
[2017-10-15] MEDS: DOCUSATE SODIUM 100 MG CAP PO SCH (20:55)
[2017-10-16] VITALS (10 sets, daily range): BP systolic 108–157; BP diastolic 59–88; PULSE 74–89; RESP 16–20; TEMP 97.8–98.3; O2SAT 93–98
[2017-10-16] MEDS: GENTAMICIN INJ 80 MG in SODIUM CHLORIDE 0.9% INJ 100 ML IV SCH ×2 (00:15→08:33)
[2017-10-16] MEDS: ACETAMINOPHEN/HYDROcodone 325 MG/10 MG TAB PO PRN ×7 (00:15→21:33)
[2017-10-16] MEDS: VANCOMYCIN 1,000 MG/NS 250 ML IV SCH ×4 (01:15→11:34)
[2017-10-16] MEDS: MORPHINE SULFATE 4 MG/ML INJ IV PUSH PRN ×3 (03:34→11:33)
[2017-10-16] MEDS: LORazepam 1 MG TAB PO PRN ×2 (03:34→15:47)
[2017-10-16 04:37] LABS: AUTOMATED NEUTROPHIL # 3.8 TH/MM3 (1.8-7.7); BASOPHIL # 0.1 TH/MM3 (0-0.2); BASOPHIL % 0.7 % (0.0-2.0); EOSINOPHIL # 0.1 TH/MM3 (0-0.4); EOSINOPHIL % 1.2 % (0.0-4.0); HEMATOCRIT 28.4 % (35.0-46.0); HEMOGLOBIN 9.6 GM/DL (11.6-15.3); LYMPH % 30.1 % (9.0-44.0); LYMPHOCYTE # 2.1 TH/MM3 (1.0-4.8); MEAN CORPUSCULAR HEMOGLOBIN 36.8 PG (27.0-34.0); MEAN CORPUSCULAR HGB CONC 33.8 % (32.0-36.0); MEAN PLATELET VOLUME 9.6 FL (7.0-11.0); MONO % 14.6 % (0.0-8.0); NEUT % 53.4 % (16.0-70.0); PLATELET COUNT 160 TH/MM3 (150-450); RED BLOOD COUNT 2.61 MIL/MM3 (4.00-5.30); RED CELL DISTRIBUTION WIDTH 13.3 % (11.6-17.2); WHITE BLOOD COUNT 7.1 TH/MM3 (4.0-11.0)
[2017-10-16] MEDS: CEFAZOLIN INJ 2,000 MG in SODIUM CHLORIDE 0.9% INJ 100 ML IV SCH ×3 (05:00→20:37)
[2017-10-16 05:07] LABS: BICARBONATE 29.2 MEQ/L (21.0-32.0); CALCIUM 7.8 MG/DL (8.5-10.1); CREATININE 0.68 MG/DL (0.50-1.00)
[2017-10-16] MEDS: LACTATED RINGER'S 1000 ML INJ 1,000 ML IV SCH ×2 (05:50→15:50)
[2017-10-16] MEDS: KETOROLAC TROMETHAMINE 30 MG/ML (IVP) VIAL IVP SCH (06:19)
[2017-10-16] MEDS ORDERED: CALCTAB19 PO (06:40)
[2017-10-16] MEDS ORDERED: HYDR-3583 PO (06:40)
[2017-10-16] MEDS ORDERED: VITA500012 PO (06:40)
[2017-10-16] MEDS ORDERED: XARE10TA PO (06:40)
--- NOTE | 2017-10-16 06:43 | PD.ORT.PN ---
Subjective Subjective Remarks Doing well status post surgery POD 1 left distal tibia and fibula shaft fracture Objective Vitals Vital Signs Date Time Temp Pulse Resp B/P (MAP) Pulse Ox O2 Delivery O2 Flow Rate FiO2 10/16/17 04:00 98.3 85 20 157/88 (111) 98 10/16/17 00:00 97.9 74 20 128/79 (95) 96 10/15/17 20:00 98.2 80 18 127/78 (94) 96 10/15/17 15:35 98.1 89 18 131/71 (91) 95 10/15/17 11:30 97.6 91 11 115/75 (88) 97 Nasal Cannula 2 10/15/17 11:15 88 12 129/78 (95) 99 10/15/17 11:00 86 9 136/72 (93) 96 10/15/17 10:45 89 9 131/60 (83) 95 Nasal Cannula 2 10/15/17 10:30 97.6 107 15 128/84 (99) 91 Nasal Cannula 4 I/O 10/15/17 10/15/17 10/15/17 10/16/17 10/16/17 10/16/17 07:00 15:00 23:00 07:00 15:00 23:00 Intake Total 102 ml 1000 ml 280 ml Output Total 875 ml Balance 102 ml 125 ml 280 ml Intake Oral 280 ml IV Total 102 ml 1000 ml Output Urine Total 800 ml Estimated Blood Loss 75 ml # Voids 2 1 # Bowel Movements 0 Result Diagram: 10/16/17 0400 10/16/17 0400 Imaging Last 24 hours Impressions Chest X-Ray 10/14/17 2239 Signed Impressions: Service Date/Time: Saturday, October 14, 2017 22:35 - CONCLUSION: No acute disease. Blaine Bardales Jr., MD Objective Remarks Bilateral upper extremities: Full range of motion and neurovascularly intact Right lower extremity: Full range of motion and neurovascularly intact Left lower extremity: Splint clean dry and intact. New Mj wrap was installed today due to some drainage. Intact sensation distally in all her toes. She is able to move all her toes appropriate Assessment & Plan Assessment and Plan Left open distal tibia and fibula shaft fracture IM nail POD 1 Nonweightbearing left lower extremity Maintain splint if significant drainage [employer] may change splint tomorrow morning Continue IV antibiotics for 48 hours after surgery Lovenox Plan for discharge to rehab tomorrow once antibiotics are completed Follow-up Dr. Leon or PA in 2 weeks Chuck Hanley Jr. October 16, 2017 06:43
[2017-10-16] MEDS: ESCITALOPRAM OXALATE 20 MG TAB PO SCH (08:34)
[2017-10-16] MEDS: LACTOBACILLUS ACIDOPHILUS TAB PO SCH (08:34)
[2017-10-16] MEDS: GABAPENTIN 300 MG CAP PO SCH ×3 (08:34→15:47)
[2017-10-16] MEDS: LOSARTAN 50 MG TAB PO SCH (08:34)
[2017-10-16] MEDS: DOCUSATE SODIUM 100 MG CAP PO SCH ×2 (08:34→20:37)
[2017-10-16] MEDS: CALCIUM/VITAMIN D 250 MG/125 U TAB PO SCH ×3 (08:34→15:47)
[2017-10-16] MEDS: ENOXAPARIN SODIUM 30 MG/0.3 ML SYRINGE SQ SCH ×2 (08:44→20:38)
--- NOTE | 2017-10-16 11:52 | EKG ---
Date Performed: 10/15/2017 Time Performed: 04:33:36 PTAGE: 57 years EKG: Sinus rhythm with borderline 1st degree A-V block Borderline ECG NO PREVIOUS TRACING DOCTOR: Giuseppe Stacy Interpretating Date/Time 10/16/2017 11:48:33
--- NOTE | 2017-10-16 12:44 | HHI.PR ---
Subjective Remarks Follow up diabetes, left leg fracture. Pain is well controlled. Patient has no complaints at this time. Denies chest pain or dyspnea. Denies nausea or vomiting. Objective Vitals Vital Signs Date Time Temp Pulse Resp B/P (MAP) Pulse Ox O2 Delivery O2 Flow Rate FiO2 10/16/17 11:43 97.8 85 18 114/69 (84) 93 10/16/17 10:40 21 10/16/17 09:51 75 10/16/17 08:10 98.0 76 16 135/84 (101) 10/16/17 08:01 98.0 76 16 135/84 (101) 96 10/16/17 04:00 98.3 85 20 157/88 (111) 98 10/16/17 00:00 97.9 74 20 128/79 (95) 96 10/15/17 20:00 98.2 80 18 127/78 (94) 96 10/15/17 15:35 98.1 89 18 131/71 (91) 95 I/O 10/15/17 10/15/17 10/15/17 10/16/17 10/16/17 10/16/17 07:00 15:00 23:00 07:00 15:00 23:00 Intake Total 102 ml 1000 ml 280 ml 350 ml Output Total 875 ml Balance 102 ml 125 ml 280 ml 350 ml Intake Oral 280 ml IV Total 102 ml 1000 ml 350 ml Output Urine Total 800 ml Estimated Blood Loss 75 ml # Voids 2 1 # Bowel Movements 0 Result Diagram: 10/16/17 0400 10/16/17 0400 Imaging Last Impressions Tibia/Fibula X-Ray 10/15/17 0000 Signed Impressions: Service Date/Time: September 09:51 - CONCLUSION: Open reduction internal fixation of the left tibial diaphyseal and medial malleolar fractures as above. Isidro Bee MD Chest X-Ray 10/14/17 2239 Signed Impressions: Service Date/Time: Saturday, October 14, 2017 22:35 - CONCLUSION: No acute disease. Blaine Bardales Jr., MD Aorta w/Runoff CTA 10/14/17 0000 Signed Impressions: Service Date/Time: Saturday, October 14, 2017 23:14 - CONCLUSION: 1. Patent inflow. 2. Right lower extremity shows patent outflow and runoff. 3. Left lower extremity has occlusion of the anterior tibial artery at the level of the fracture of the lower leg possibly due to spasm. The posterior tibial artery and peroneal artery are patent. 4. Hepatic steatosis. 5. Prior splenectomy and partial pancreatectomy. Blaine Bardales Jr., MD Objective Remarks General: No acute distress. Sitting up in a chair. Heart: Regular rate and rhythm. No murmur. Lungs: Clear to auscultation bilaterally. No wheezes, rales, or rhonchi. Breathing is nonlabored. Abdomen: Soft, nontender, nondistended. Extremities: No lower extremity edema. Left leg in a splint. Psych: Alert and oriented. Neuro: Normal speech. No focal deficits noted. Procedures 10/15/17 irrigation and debridement of open left fibula fracture, intramedullary nail fixation of left tibia fracture, ORIF left medial malleolus ankle fracture Urinary Catheter: No Vascular Central Line Catheter: No A/P Problem List: (1) Open fracture of left tibia and fibula ICD Code: S82.402B - Unspecified fracture of shaft of left fibula, initial encounter for open fracture type I or II; S82.202B - Unspecified fracture of shaft of left tibia, initial encounter for open fracture type I or II Status: Acute (2) Alcohol intoxication ICD Code: F10.929 - Alcohol use, unspecified with intoxication, unspecified Status: Acute Assessment and Plan 1. Open fracture left tibia and fibula: Management per orthopedic surgery. Status post irrigation and debridement, intramedullary nail fixation of tibia fracture, and ORIF of left medial malleolus fracture. Continue pain control, bowel regimen, physical therapy. Nonweightbearing on the left. CTA runoff was done and discussed with the vascular surgeon director of publications by the ER physician. No vascular surgery intervention recommended. 2. Alcohol abuse: Patient presented with an ethanol call level of 235. [facility] protocol. Patient has been counseled. 3. Dehydration, mild hyperkalemia: Improved. 4. DVT prophylaxis: Lovenox. Discharge Planning Plan for discharge to SNF tomorrow after completion of 48 hours of postoperative IV antibiotics. Problem Qualifiers (1) Open fracture of left tibia and fibula: Qualified Codes: S82.202C - Unspecified fracture of shaft of left tibia, initial encounter for open fracture type IIIA, IIIB, or IIIC; S82.402C - Unspecified fracture of shaft of left fibula, initial encounter for open fracture type IIIA, IIIB, or IIIC (2) Alcohol intoxication: Qualified Codes: F10.920 - Alcohol use, unspecified with intoxication, uncomplicated Estevan Roy MD October 16, 2017 12:44
[2017-10-16] MEDS: MAGNESIUM HYDROXIDE SUSP 30 ML CUP PO SCH (20:37)
[2017-10-16] MEDS: POLYETHYLENE GLYCOL 17 GM PKG PO SCH (20:38)
[2017-10-17] VITALS (12 sets, daily range): BP systolic 123–142; BP diastolic 67–90; PULSE 86–102; RESP 16–20; TEMP 97.6–100; O2SAT 92–97
[2017-10-17] MEDS: VANCOMYCIN 1,000 MG/NS 250 ML IV SCH ×2 (00:38)
[2017-10-17] MEDS: LORazepam 1 MG TAB PO PRN ×3 (00:38→21:40)
[2017-10-17] MEDS: ACETAMINOPHEN/HYDROcodone 325 MG/10 MG TAB PO PRN ×6 (00:39→20:34)
[2017-10-17] MEDS ORDERED: PHARMACY ORDERED LAB ONE (00:45)
[2017-10-17] MEDS: LACTATED RINGER'S 1000 ML INJ 1,000 ML IV SCH ×3 (01:50→20:35)
[2017-10-17] MEDS: CEFAZOLIN INJ 2,000 MG in SODIUM CHLORIDE 0.9% INJ 100 ML IV SCH (05:15)
[2017-10-17] MEDS ORDERED: DOCU1CAP39 PO (07:46)
[2017-10-17] MEDS: ENOXAPARIN SODIUM 30 MG/0.3 ML SYRINGE SQ SCH ×2 (08:19→20:34)
[2017-10-17] MEDS: LOSARTAN 50 MG TAB PO SCH (08:19)
[2017-10-17] MEDS: CALCIUM/VITAMIN D 250 MG/125 U TAB PO SCH ×3 (08:19→17:37)
[2017-10-17] MEDS: GABAPENTIN 300 MG CAP PO SCH ×3 (08:19→17:37)
[2017-10-17] MEDS: DOCUSATE SODIUM 100 MG CAP PO SCH ×2 (08:19→20:33)
[2017-10-17] MEDS: MAGNESIUM HYDROXIDE SUSP 30 ML CUP PO SCH ×2 (08:20→20:34)
[2017-10-17] MEDS: POLYETHYLENE GLYCOL 17 GM PKG PO SCH (08:20)
[2017-10-17] MEDS: LACTOBACILLUS ACIDOPHILUS TAB PO SCH (08:20)
[2017-10-17] MEDS: ESCITALOPRAM OXALATE 20 MG TAB PO SCH (08:20)
[2017-10-17 08:26] LABS: HEMATOCRIT 24.8 % (35.0-46.0); HEMOGLOBIN 8.5 GM/DL (11.6-15.3)
[2017-10-17] MEDS: VANCOMYCIN INJ 1,250 MG in SODIUM CHLOR 0.9% 250 ML INJ 250 ML IV SCH (13:52)
--- NOTE | 2017-10-17 15:47 | HHI.PR ---
Subjective Remarks Patient offers no new complaints Looking forward to DC Objective Vitals Vital Signs Date Time Temp Pulse Resp B/P (MAP) Pulse Ox O2 Delivery O2 Flow Rate FiO2 10/17/17 15:20 18 10/17/17 12:00 99.1 97 18 142/82 (102) 97 10/17/17 08:01 93 21 10/17/17 08:00 100.0 96 16 124/72 (89) 92 10/17/17 05:06 88 10/17/17 04:00 98.6 95 20 123/67 (85) 94 10/17/17 00:00 98.4 88 18 134/85 (101) 95 10/16/17 23:53 89 10/16/17 20:40 21 10/16/17 20:00 98.3 86 18 108/65 (79) 94 10/16/17 19:33 83 10/16/17 15:53 98.1 86 18 117/59 (78) 96 I/O 10/16/17 10/16/17 10/16/17 10/17/17 10/17/17 10/17/17 07:00 15:00 23:00 07:00 15:00 23:00 Intake Total 280 ml 450 ml 1610 ml 850 ml Balance 280 ml 450 ml 1610 ml 850 ml Intake Oral 280 ml 480 ml IV Total 450 ml 1610 ml 370 ml # Voids 1 4 2 # Bowel Movements 0 Result Diagram: 10/17/17 0653 10/16/17 0400 Other Results Laboratory Tests Test 10/14/17 22:39 10/15/17 03:05 10/15/17 03:49 10/16/17 04:00 White Blood Count 7.9 TH/MM3 7.1 TH/MM3 Red Blood Count 3.23 MIL/MM3 2.61 MIL/MM3 Hemoglobin 11.8 GM/DL 9.6 GM/DL Bedside Hemoglobin 12.9 G/DL Hematocrit 35.0 % 28.4 % Bedside Hematocrit 38.0 % Mean Corpuscular Volume 108.2 FL 109.0 FL Mean Corpuscular Hemoglobin 36.6 PG 36.8 PG Mean Corpuscular Hemoglobin Concent 33.8 % 33.8 % Red Cell Distribution Width 13.1 % 13.3 % Platelet Count 245 TH/MM3 160 TH/MM3 Mean Platelet Volume 10.6 FL 9.6 FL Neutrophils (%) (Auto) 32.2 % 53.4 % Lymphocytes (%) (Auto) 48.2 % 30.1 % Monocytes (%) (Auto) 13.8 % 14.6 % Eosinophils (%) (Auto) 4.3 % 1.2 % Basophils (%) (Auto) 1.5 % 0.7 % Neutrophils # (Auto) 2.6 TH/MM3 3.8 TH/MM3 Lymphocytes # (Auto) 3.8 TH/MM3 2.1 TH/MM3 Monocytes # (Auto) 1.1 TH/MM3 1.0 TH/MM3 Eosinophils # (Auto) 0.3 TH/MM3 0.1 TH/MM3 Basophils # (Auto) 0.1 TH/MM3 0.1 TH/MM3 CBC Comment DIFF FINAL DIFF FINAL Differential Comment Prothrombin Time 9.4 SEC Prothromb Time International Ratio 0.9 RATIO Activated Partial Thromboplast Time 24.0 SEC Bedside Sodium 141 MMOL/L Bedside Potassium 5.5 MMOL/L Bedside Chloride 109 MMOL/L Bedside Blood Urea Nitrogen 35 MG/DL Bedside Creatinine 1.1 MG/DL Bedside Glucose 92 MG/DL Ethyl Alcohol Level 235 MG/DL Urine Color LIGHT-YELLOW Urine Turbidity CLEAR Urine pH 5.5 Urine Specific [place] 1.036 Urine Protein NEG mg/dL Urine Glucose (UA) NEG mg/dL Urine Ketones NEG mg/dL Urine Occult Blood NEG Urine Nitrite NEG Urine Bilirubin NEG Urine Urobilinogen LESS THAN 2.0 MG/DL Urine Leukocyte Esterase NEG Urine WBC 1 /hpf Urine Mucus FEW /lpf Microscopic Urinalysis Comment CULT NOT INDICATED Blood Urea Nitrogen 20 MG/DL 11 MG/DL Creatinine 0.83 MG/DL 0.68 MG/DL Random Glucose 98 MG/DL 108 MG/DL Calcium Level 7.9 MG/DL 7.8 MG/DL Sodium Level 144 MEQ/L 141 MEQ/L Potassium Level 4.2 MEQ/L 4.4 MEQ/L Chloride Level 111 MEQ/L 105 MEQ/L Carbon Dioxide Level 25.5 MEQ/L 29.2 MEQ/L Anion Gap 8 MEQ/L 7 MEQ/L Estimat Glomerular Filtration Rate 59 ML/MIN 89 ML/MIN Test 10/17/17 00:20 10/17/17 06:53 Vancomycin Level Trough 8.3 MCG/ML Hemoglobin 8.5 GM/DL Hematocrit 24.8 % Imaging Last Impressions Tibia/Fibula X-Ray 10/15/17 0000 Signed Impressions: Service Date/Time: September 09:51 - CONCLUSION: Open reduction internal fixation of the left tibial diaphyseal and medial malleolar fractures as above. Isidro Bee MD Chest X-Ray 10/14/17 2239 Signed Impressions: Service Date/Time: Saturday, October 14, 2017 22:35 - CONCLUSION: No acute disease. Blaine Bardales Jr., MD Aorta w/Runoff CTA 10/14/17 0000 Signed Impressions: Service Date/Time: Saturday, October 14, 2017 23:14 - CONCLUSION: 1. Patent inflow. 2. Right lower extremity shows patent outflow and runoff. 3. Left lower extremity has occlusion of the anterior tibial artery at the level of the fracture of the lower leg possibly due to spasm. The posterior tibial artery and peroneal artery are patent. 4. Hepatic steatosis. 5. Prior splenectomy and partial pancreatectomy. Blaine Bardales Jr., MD Objective Remarks GENERAL: This is a well-nourished, well-developed patient, in no apparent distress. CARDIOVASCULAR: Regular rate and rhythm RESPIRATORY: Clear to auscultation. Breath sounds equal bilaterally. GASTROINTESTINAL: Abdomen soft, non-tender, nondistended. Normal active bowel sounds MUSCULOSKELETAL: Extremities without clubbing, cyanosis, or edema. Post-op dressing dry and intact NEURO: Alert & Oriented x4 to person, place, time, situation. Moves all ext x4 Procedures 10/15/17 irrigation and debridement of open left fibula fracture, intramedullary nail fixation of left tibia fracture, ORIF left medial malleolus ankle fracture A/P Problem List: (1) Open fracture of left tibia and fibula ICD Code: S82.402B - Unspecified fracture of shaft of left fibula, initial encounter for open fracture type I or II; S82.202B - Unspecified fracture of shaft of left tibia, initial encounter for open fracture type I or II Status: Acute (2) Alcohol intoxication ICD Code: F10.929 - Alcohol use, unspecified with intoxication, unspecified Status: Acute Assessment and Plan Ms. Mayberry is a 57 year-old female with a history of type 2 diabetes mellitus managed with diet and weight loss, hypertension, and peptic ulcer who fell coming down some steps and suffered an open fracture of her left tibia and fibula. She is admitted for orthopedic consultation and further medical management to the [facility] service. Open fracture of left tibia and fibula - case discussed with supervising physician Dr. Roy patient started on Vancomycin due to concerns of MRSA -Consult orthopedic surgery, S/P Irrigation and debridement of open left fibula fracture, intramedullary nail fixation of left tibia fracture, open reduction internal fixation left medial malleolus ankle fracture with Dr. Leon 10/15/17 - Orthopedic surgery also ordered Cefazolin and Gentamicin -Hydrocodone as needed pain -CTA runoff was d/w ( vascular surgery information management manager) by ER physician and no vascular interventions recommended -CBC in AM -10/17 - Patient cleared for DC per orthopedic surgery. Patient had elevated temp this AM 100.0 will continue abx x 1 additional day. Monitor temp - hgb 8.5, recheck CBC in AM Alcohol abuse -Ethyl alcohol level 235 on admission -[facility] protocol -patient counselled Dehydration with bun of 35 mild hyperkalemia -IV fluid hydration with normal saline at 100 cc/h- DC'd -Recheck BMP shows potassium of 4.2 -patient now tolerating PO DC IVF DVT prophylaxis Lovenox per orthopedic surgery supervising physician Dr. Calero Problem Qualifiers (1) Open fracture of left tibia and fibula: Qualified Codes: S82.202C - Unspecified fracture of shaft of left tibia, initial encounter for open fracture type IIIA, IIIB, or IIIC; S82.402C - Unspecified fracture of shaft of left fibula, initial encounter for open fracture type IIIA, IIIB, or IIIC (2) Alcohol intoxication: Qualified Codes: F10.920 - Alcohol use, unspecified with intoxication, uncomplicated Jeannine Mead October 17, 2017 15:47
[2017-10-17] MEDS: CEFUROXIME AXETIL 500 MG TAB PO SCH (20:34)
[2017-10-18] VITALS (7 sets, daily range): BP systolic 132–161; BP diastolic 69–86; PULSE 60–92; RESP 18; TEMP 98.1–99.1; O2SAT 92–97
[2017-10-18] MEDS: VANCOMYCIN INJ 1,250 MG in SODIUM CHLOR 0.9% 250 ML INJ 250 ML IV SCH ×2 (01:02→13:42)
[2017-10-18] MEDS: ACETAMINOPHEN/HYDROcodone 325 MG/10 MG TAB PO PRN ×4 (04:51→16:44)
--- NOTE | 2017-10-18 08:05 | RADRPT ---
EXAM DATE/TIME: 10/18/2017 07:45 [facility] COMPARISON: CHEST SINGLE AP, October 14, 2017, 22:35. INDICATIONS : Fever MEDICAL HISTORY : Hypertension. SURGICAL HISTORY : ORIF tiba ENCOUNTER: Subsequent ACUITY: 4 - 6 days PAIN SCORE: 0/10 LOCATION: chest FINDINGS: A single view of the chest demonstrates the lungs to be symmetrically aerated without evidence of mas s, infiltrate or effusion. The cardiomediastinal contours are unremarkable. Osseous structures are intact. CONCLUSION: The lungs are clear. Blaine Malik MD on October 18, 2017 at 8:03 Board Certified Radiologist. This report was verified electronically.
[2017-10-18] MEDS: MAGNESIUM HYDROXIDE SUSP 30 ML CUP PO SCH (09:00)
[2017-10-18] MEDS: POLYETHYLENE GLYCOL 17 GM PKG PO SCH (09:00)
[2017-10-18] MEDS: CEFUROXIME AXETIL 500 MG TAB PO SCH (09:01)
[2017-10-18] MEDS: LOSARTAN 50 MG TAB PO SCH (09:01)
[2017-10-18] MEDS: ESCITALOPRAM OXALATE 20 MG TAB PO SCH (09:01)
[2017-10-18] MEDS: DOCUSATE SODIUM 100 MG CAP PO SCH (09:01)
[2017-10-18] MEDS: LACTOBACILLUS ACIDOPHILUS TAB PO SCH (09:01)
[2017-10-18] MEDS: CALCIUM/VITAMIN D 250 MG/125 U TAB PO SCH ×2 (09:02→13:42)
[2017-10-18] MEDS: GABAPENTIN 300 MG CAP PO SCH ×2 (09:02→13:42)
[2017-10-18] MEDS: ENOXAPARIN SODIUM 30 MG/0.3 ML SYRINGE SQ SCH (09:02)
[2017-10-18 09:12] LABS: AUTOMATED NEUTROPHIL # 5.3 TH/MM3 (1.8-7.7); BASOPHIL # 0.1 TH/MM3 (0-0.2); EOSINOPHIL # 0.2 TH/MM3 (0-0.4); EOSINOPHIL % 2.8 % (0.0-4.0); HEMATOCRIT 25.6 % (35.0-46.0); HEMOGLOBIN 8.8 GM/DL (11.6-15.3); LYMPH % 19.9 % (9.0-44.0); LYMPHOCYTE # 1.7 TH/MM3 (1.0-4.8); MEAN CELL VOLUME 106.2 FL (80.0-100.0); MEAN CORPUSCULAR HEMOGLOBIN 36.5 PG (27.0-34.0); MEAN CORPUSCULAR HGB CONC 34.4 % (32.0-36.0); MEAN PLATELET VOLUME 9.7 FL (7.0-11.0); MONO % 13.5 % (0.0-8.0); MONOCYTE # 1.1 TH/MM3 (0-0.9); NEUT % 62.8 % (16.0-70.0); PLATELET COUNT 225 TH/MM3 (150-450); RED BLOOD COUNT 2.41 MIL/MM3 (4.00-5.30); RED CELL DISTRIBUTION WIDTH 12.7 % (11.6-17.2); WHITE BLOOD COUNT 8.4 TH/MM3 (4.0-11.0)
--- NOTE | 2017-10-18 12:14 | RADRPT ---
EXAM DATE/TIME: 10/18/2017 11:08 [facility] COMPARISON: No previous studies available for comparison. INDICATIONS : Status post left lower extremity surgery 10/15/2017. MEDICAL HISTORY : Hypertension. Glasses. Dentures. Torn miniscus. Anxiety. SURGICAL HISTORY : Arthroscopy. Left tibial fracture repair 10/15/2017. 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 Left [address] st tumor removed. Bladder lift. ENCOUNTER: Initial ACUITY: 1 day PAIN SCORE: 0/10 LOCATION: Right leg. TECHNIQUE: Venous ultrasound of the leg was performed from the inguinal ligament to the proximal calf. Real-charlie e, color Doppler and spectral tracing, compression and augmentation techniques were used. FINDINGS: There is normal compressibility of the deep venous system from the inguinal region to the proximal ca lf. No echogenic clot is seen in the lumen of the common femoral, femoral, popliteal, and posterior tibial veins. There is a normal response of the venous system to proximal and distal augmentation an d respiration. CONCLUSION: 1. Negative for deep venous thrombosis right lower extremity. Blaine Malik MD on October 18, 2017 at 12:12 Board Certified Radiologist. This report was verified electronically.
[2017-10-18 14:43] LABS: BILIRUBIN, URINE NEG (NEG); BLOOD, URINE NEG (NEG); GLUCOSE,URINE NEG (NEG); KETONE, URINE NEG (NEG); NITRITE,URINE NEG (NEG); PH, URINE 8.5 (5.0-8.5); SQUAMOUS EPITHELIAL CELL URINE <1 /hpf (0-5); URINE COLOR LIGHT-YELLOW (YELLW/STRAW); URINE LEUKOCYTE ESTERASE NEG (NEG)
--- NOTE | 2017-10-18 15:29 | HHI.DS ---
Discharge Summary Admission Date October 15, 2017 at 00:21 Discharge Date: October 18, 2017 Admitting Diagnosis Open/comminuted left tib-fib fracture (1) Open fracture of left tibia and fibula ICD Code: S82.402B - Unspecified fracture of shaft of left fibula, initial encounter for open fracture type I or II; S82.202B - Unspecified fracture of shaft of left tibia, initial encounter for open fracture type I or II Status: Acute (2) Alcohol intoxication ICD Code: F10.929 - Alcohol use, unspecified with intoxication, unspecified Status: Acute Procedures 10/15/17 irrigation and debridement of open left fibula fracture, intramedullary nail fixation of left tibia fracture, ORIF left medial malleolus ankle fracture Brief History - From Admission Written by Antonella Rocha, acting as scribe for Dr. Oliveira on 10/15/17 at 00:32. Ms. Mayberry is a 57 year-old female with a history of type 2 diabetes mellitus managed with diet and weight loss, hypertension, and peptic ulcer who fell coming down some steps and suffered an open fracture of her left tibia and fibula. She is [facility] orthopedic [facility] The patient is seen in the ED. She reports severe left lower extremity pain. Patient states that she has 2 steps coming out of her trailer and when she attempted to walk down the steps at about 7:30 PM on 10/14/2017, her ankle "gave way". She suffered from immediate pain in the left lower extremity and inability to ambulate. Prior to/during fall: she denies hitting her head, she denies syncope, she denies dizziness, she denies shortness of breath, she denies chest pain. The patient reports that she was recently diagnosed with osteoporosis or osteopenia - was not placed on medications "yet". CBC/BMP: 10/18/17 0740 10/16/17 0400 Significant Findings Laboratory Tests Test 10/16/17 04:00 10/17/17 00:20 10/17/17 06:53 10/18/17 07:40 Red Blood Count 2.61 MIL/MM3 (4.00-5.30) 2.41 MIL/MM3 (4.00-5.30) Hemoglobin 9.6 GM/DL (11.6-15.3) 8.5 GM/DL (11.6-15.3) 8.8 GM/DL (11.6-15.3) Hematocrit 28.4 % (35.0-46.0) 24.8 % (35.0-46.0) 25.6 % (35.0-46.0) Mean Corpuscular Volume 109.0 FL (80.0-100.0) 106.2 FL (80.0-100.0) Mean Corpuscular Hemoglobin 36.8 PG (27.0-34.0) 36.5 PG (27.0-34.0) Monocytes (%) (Auto) 14.6 % (0.0-8.0) 13.5 % (0.0-8.0) Monocytes # (Auto) 1.0 TH/MM3 (0-0.9) 1.1 TH/MM3 (0-0.9) Random Glucose 108 MG/DL (74-106) Calcium Level 7.8 MG/DL (8.5-10.1) Test 10/18/17 13:30 Imaging Last Impressions Lower Extremity Ultrasound 10/18/17 0000 Signed Impressions: Service Date/Time: Wednesday, October 18, 2017 11:08 - CONCLUSION: 1. Negative for deep venous thrombosis right lower extremity. Blaine Malik MD Chest X-Ray 10/18/17 0000 Signed Impressions: Service Date/Time: Wednesday, October 18, 2017 07:45 - CONCLUSION: The lungs are clear. Blaine Malik MD Tibia/Fibula X-Ray 10/15/17 0000 Signed Impressions: Service Date/Time: September 09:51 - CONCLUSION: Open reduction internal fixation of the left tibial diaphyseal and medial malleolar fractures as above. Isidro Bee MD Aorta w/Runoff CTA 10/14/17 0000 Signed Impressions: Service Date/Time: Saturday, October 14, 2017 23:14 - CONCLUSION: 1. Patent inflow. 2. Right lower extremity shows patent outflow and runoff. 3. Left lower extremity has occlusion of the anterior tibial artery at the level of the fracture of the lower leg possibly due to spasm. The posterior tibial artery and peroneal artery are patent. 4. Hepatic steatosis. 5. Prior splenectomy and partial pancreatectomy. Blaine Bardales Jr., MD PE at Discharge GENERAL: This is a well-nourished, well-developed patient, in no apparent distress. CARDIOVASCULAR: Regular rate and rhythm RESPIRATORY: Clear to auscultation. Breath sounds equal bilaterally. GASTROINTESTINAL: Abdomen soft, non-tender, nondistended. Normal active bowel sounds MUSCULOSKELETAL: Extremities without clubbing, cyanosis, or edema. Post-op dressing dry and intact NEURO: Alert & Oriented x4 to person, place, time, situation. Moves all ext x4 Hospital Course Ms. Mayberry is a 57 year-old female with a history of type 2 diabetes mellitus managed with diet and weight loss, hypertension, and peptic ulcer who fell coming down some steps and suffered an open fracture of her left tibia and fibula. She is admitted for orthopedic consultation and [facility] [place]. Open fracture of left tibia and fibula - patient started on Vancomycin due to concerns of MRSA -Consult orthopedic surgery, S/P Irrigation and debridement of open left fibula fracture, intramedullary nail fixation of left tibia fracture, open reduction internal fixation left medial malleolus ankle fracture with Dr. Leon 10/15/17 - Orthopedic surgery also ordered Cefazolin and Gentamicin -Hydrocodone as needed pain -CTA runoff was d/w ( vascular surgery news camera person) by ER physician and no vascular interventions recommended -CBC in AM -10/17 - Patient cleared for DC per orthopedic surgery. Patient had elevated temp this AM 100.0 will continue abx x 1 additional day. Monitor temp - (10/18) elevated temp resolved. UA no culture indicated, CXR the lungs are clear, US nonoperative extremity neg for DVT right lower extremity, WBC 8.4 - hgb 8.5-> (10/18) 8.8 Alcohol abuse -Ethyl alcohol level 235 on admission -[facility] protocol -patient counselled Dehydration with bun of 35- resolved mild hyperkalemia- resolved -IV fluid hydration with normal saline at 100 cc/h- DC'd -patient now tolerating PO DC IVF and hyperkalemia resolved DVT prophylaxis Lovenox per orthopedic surgery supervising physician Dr. Calero Pt Condition on Discharge: Stable Discharge Disposition: Discharge to SNF Discharge Time: > 30 minutes Discharge Instructions DIET: Follow Instructions for: Heart Healthy Diet Activities you can perform: See Additionl Instruction Other Activity Instructions: Per orthopedic surgery: Nonweightbearing left lower extremity Follow up Referrals: Orthopedics - 2 Weeks [facility] with Brant Leon MD PCP Follow-up - 1 Week New Medications: Calcium Carbonate-Vitamin D (Calcium 600+D 200) 600-200 Mg-Unit Tab 1 TAB PO BID for Nutritional Supplement, #90 TAB 0 Refills Ergocalciferol (Ergocalciferol) 50,000 Unit Cap 69510 UNITS PO Q7D for Nutritional Supplement, #8 CAP Hydrocodone-Acetaminophen (Hydrocodone-Acetaminophen) 10-325 mg Tab 1 TAB PO Q4H PRN for PAIN, #60 TAB 0 Refills Rivaroxaban (Xarelto) 10 Mg Tab 10 MG PO DAILY for Blood Clot Prevention, #14 TAB 0 Refills Walker with Front Wheels (Walker with Front Wheels) 1 Mis Mis EA .XX DIRECTED, #1 0 Refills Docusate Sodium (Dok) 100 Mg Cap 100 MG PO BID for stool softener, #60 CAP 0 Refills Continued Medications: Escitalopram (Lexapro) 20 Mg Tab 20 MG PO DAILY, #30 TAB 0 Refills Gabapentin (Neurontin) 300 Mg Cap 300 MG PO TID, #90 CAP 0 Refills Lactobacillus Acidophilus (Lactinex) 1 Chew 1 TAB CHEW DAILY for Nutritional Supplement, TAB 0 Refills Losartan (Losartan) 50 Mg Tab 50 MG PO DAILY for Blood Pressure Management, #30 TAB 0 Refills Jeannine Mead October 18, 2017 15:29
[2017-10-19] MEDS ORDERED: PHARMACY ORDERED LAB ONE (00:45)
== END 2017-10-18 17:50 | DRG 494 ==
LOC: NEPI 22:33 → NEDA 10-15 00:21 → EDBD 10-15 00:21 → N06A 10-15 02:10
PROVIDERS: ADMIT Hospitalist; ATTEND Hospitalist
PROC: 0QSH04Z Reposition Left Tibia with Internal Fixation Device, Open Approach (ICD-10-PCS; principal; 2017-10-15 08:28)
DX: S82.252A Displaced comminuted fracture of shaft of left tibia, initial encounter for closed fracture (principal); S82.452A Displaced comminuted fracture of shaft of left fibula, initial encounter for closed fracture; E87.5 Hyperkalemia; I10 Essential (primary) hypertension; F10.920 Alcohol use, unspecified with intoxication, uncomplicated; E86.0 Dehydration; E11.9 Type 2 diabetes mellitus without complications; M81.0 Age-related osteoporosis without current pathological fracture; F41.9 Anxiety disorder, unspecified; F32.9 Major depressive disorder, single episode, unspecified; W10.9XXA Fall (on) (from) unspecified stairs and steps, initial encounter
CPT/HCPCS: 71045; 73590; 75635; 76000; 80048; 80202; 80307; 81001; 85014; 85018; 85025; 85610; 85730; 86850; 86900; 86901; 90715; 93005; 93971; 94150; C1713; J0690; J1100; J1170; J1580; J1650; J1885; J2250; J2270; J2370; J2405; J3010; J3370; J7030; J7050; J7120; Q9967